=== PATIENT | male | born 1980 | race African-American/Black ===

== ENCOUNTER 2017-02-20 08:32 | Inpatient (IN) | payer OTHER ==
[2017-02-20 10:17] VITALS: BMI 20.9
--- NOTE | 2017-02-20 13:32 | HP ---
CIWA Score - CIWA Score Nausea/Vomitin-No Nausea/No Vomiting Muscle Tremors: 4-Moderate,w/Arms Extend Anxiety: 3 Agitation: 4-Moderately Restless Paroxysmal Sweats: 3 Orientation: 0-Oriented Tacttile Disturbances: 0-None Auditory Disturbances: 0-None Visual Disturbances: 0-None Headache: 0-None Present CIWA-Ar Total Score: 14 Admission ROS BHS - HPI Chief Complaint: I am here for detox. Allergies/Adverse Reactions: Allergies Allergy/AdvReac Type Severity Reaction Status Date / Time No Known Allergies Allergy Verified 02/20/17 11:31 History of Present Illness: pt is a 36yr old male with a history of alcohol and cannabis dependence seeking detox for treatment. pt has swelling to left hand , pt states he hit a wall yesterday and didn't go to a hospital. pt is unable to move hand and unable to make a fist. there is both swelling and is red and warm to touch. Exam Limitations: No Limitations - Ebola screening Have you traveled outside of the country in the last 21 days: No Have you had contact with anyone from an Ebola affected area: No Have you been sick,other than usual withdrawal symptoms: No Do you have a fever: No - Review of Systems Constitutional: Chills, Loss of Appetite, Night Sweats, Changes in sleep EENT: reports: No Symptoms Reported Respiratory: reports: No Symptoms reported Cardiac: reports: Syncope GI: reports: Poor Appetite, Poor Fluid Intake : reports: No Symptoms Reported Musculoskeletal: reports: No Symptoms Reported Integumentary: reports: Sweating Neuro: reports: Headache, Tingling, Tremors Endocrine: reports: Excessive Sweating, Flushing, Intolerance to Cold, Intolerance to Heat Hematology: reports: No Symptoms Reported Psychiatric: reports: Judgement Intact, Mood/Affect Appropiate, Orientated x3, Agitated, Anxious Other Systems: Reviewed and Negative Patient History - Patient Medical History Hx Anemia: No Hx Asthma: No Hx Chronic Obstructive Pulmonary Disease (COPD): No Hx Cancer: No Hx Cardiac Disorders: No Hx Congestive Heart Failure: No Hx Hypertension: No Hx Hypercholesterolemia: No Hx Pacemaker: No HX Cerebrovascular Accident: No Hx Seizures: No Hx Dementia: No Hx Diabetes: No Hx Gastrointestinal Disorders: No Hx Liver Disease: No Hx Genitourinary Disorders: No Hx Sexually Transmitted Disorders: No Hx Renal Disease (ESRD): No Hx Thyroid Disease: No Hx Human Immunodeficiency Virus (HIV): No (negative) Hx Hepatitis C: No Hx Depression: No Hx Suicide Attempt: No (denies) Hx Bipolar Disorder: No Hx Schizophrenia: No - Patient Surgical History Past Surgical History: No Hx Neurologic Surgery: No Hx Cataract Extraction: No Hx Cardiac Surgery: No Hx Lung Surgery: No Hx Breast Surgery: No Hx Breast Biopsy: No Hx Abdominal Surgery: No Hx Appendectomy: No Hx Cholecystectomy: No Hx Genitourinary Surgery: No Hx Section: No Hx Orthopedic Surgery: No Anesthesia Reaction: No - PPD History Previous Implant?: Yes Documented Results: Negative w/o proof Implanted On Prior [facility] Admission?: No PPD to be Administered?: Yes - Reproductive History Patient is a Female of Child Bearing Age (11 -55 yrs old): No - Smoking Cessation Smoking history: Current every day smoker Have you smoked in the past 12 months: Yes Aproximately how many cigarettes per day: 10 Hx Chewing Tobacco Use: No Initiated information on smoking cessation: Yes 'Breaking Loose' booklet given: 02/20/17 - Substance & Tx. History Hx Alcohol Use: Yes Hx Substance Use: Yes Substance Use Type: Alcohol, Marijuana Hx Substance Use Treatment: Yes (last detox [facility] over a yr ago) - Substances Abused Alcohol-vodka/rum/beer Route: Oral Frequency: Daily Amount used: 2-3 p[ts./2-3 pts. Age of first use: 18 Date of Last Use: 02/20/17 Marijuana Route: Smoking Frequency: 3-6 times per week Amount used: $5 Age of first use: 18 Date of Last Use: 02/24/17 Family Disease History - Family Disease History Family History: Denies Admission Physical Exam BHS - Vital Signs Vital Signs: Vital Signs - 24 hr 02/20/17 10:14 Temperature 96.4 F L Pulse Rate 71 Respiratory 20 Rate Blood Pressure 127/77 - Physical General Appearance: Yes: Appropriately Dressed, Moderate Distress, Alcohol on Breath, Thin, Irritable HEENTM: Yes: Normal Voice Respiratory: Yes: Lungs Clear, Normal Breath Sounds, No Respiratory Distress Neck: Yes: No masses,lesions,Nodules Breast: Yes: Within Normal Limits Cardiology: Yes: Regular Rhythm, Regular Rate, S1, S2 Abdominal: Yes: Normal Bowel Sounds, Non Tender, Soft Genitourinary: Yes: Within Normal Limits Back: Yes: Normal Inspection Musculoskeletal: Yes: Other (left hand swelling, redness unable to make fist or move fingers.) Extremities: Yes: Normal Capillary Refill, Normal Inspection, Non-Tender, Tremors Neurological: Yes: Fully Oriented, Normal Response Integumentary: Yes: Normal Color, Diaphoresis Lymphatic: Yes: Within Normal Limits - Diagnostic (1) Alcohol dependence with uncomplicated withdrawal Current Visit: Yes Status: Chronic (2) Cannabis dependence Current Visit: Yes Status: Chronic (3) Hand injury Current Visit: Yes Status: Acute Qualifiers: Encounter type: initial encounter Comment: pt states he hit a wall yesterday, hand is swollen and red, unable to make a fist or move fingers. pt will be sent to [place] for eval BHS Breath Alcohol Content Breath Alcohol Content: 0.218 Urine Drug Screen - Results Drug Screen Negative: Yes
--- NOTE | 2017-02-20 13:40 | PN ---
BHS Progress Note Note: pt has a left hand swelling with redness and pt is unable to move hand, open nor close hand or make a fist. pt will be taken to [place] ED for evaluation. report given to Dr. Anderson for evaluation
[2017-02-20] MEDS ORDERED: LOPERAMIDE HCL 2 MG CAPSULE PO PRN (13:46)
[2017-02-20] MEDS ORDERED: guaiFENesin/D-METHORPHAN HB 10 ML UNIT-DOSE CUPS PO PRN (13:46)
[2017-02-20] MEDS ORDERED: MAGNESIUM HYDROX 2400MG/30ML ORAL SUSPENSION 30 ML CUP PO PRN (13:46)
[2017-02-20] MEDS ORDERED: chlordiazePOXIDE HCL 25 MG CAPSULE PO PRN (13:46)
[2017-02-20] MEDS ORDERED: MAG HYDROX/AL HYDROX/SIMETH 30 ML UNIT-DOSE CUP PO PRN (13:46)
[2017-02-20] MEDS ORDERED: P-EPHED 60MG/TRIPROLIDI 2.5MG TABLET PO PRN (13:46)
[2017-02-20] MEDS ORDERED: IBUPROFEN 400 MG TABLET (FP) PO PRN (13:46)
[2017-02-20] MEDS ORDERED: MAGNESIUM CITRATE 300 ML BOTTLE PO PRN (13:46)
[2017-02-20] MEDS ORDERED: NICOTINE POLACRILEX 4 MG GUM BC PRN (13:46)
[2017-02-20] MEDS ORDERED: ACETAMINOPHEN 325 MG TABLET (FP) PO PRN (13:46)
[2017-02-20] MEDS ORDERED: MENTHOL/PHENOL 1 EACH UD MM PRN (13:46)
--- NOTE | 2017-02-20 17:40 | PN ---
S Progress Note Note: 36 YEARS OLD MALE RETURN FROM ER, TREATED WITH CLOSED FRACTURE METACARPAL BONE, SPLINT SLING OF LEFT ARM, FOLLOW UP WITH ORTHOPEDIC IN ONE WEEK AROUND 02/27/17 , FOUR FINGERS MOVE FREELY, 5TH FINGER LIMITED MOBILITY, BRISK CAPILLARY REFILL , 3/10 DISCOMFORT
[2017-02-20] MEDS ORDERED: chlordiazePOXIDE HCL 25 MG CAPSULE PO ONE (18:00)
[2017-02-20] MEDS: chlordiazePOXIDE HCL 25 MG CAPSULE PO SCH ×2 (18:50→22:23)
[2017-02-20] MEDS: THIAMINE HCL 100 MG TABLET (FP) PO SCH (22:23)
[2017-02-20] MEDS: diphenhydrAMINE HCL 50 MG CAPSULE PO PRN (22:24)
[2017-02-21 01:09] LABS: URINE APPEARANCE CLEAR; URINE BILIRUBIN NEGATIVE (NEGATIVE); URINE BLOOD NEGATIVE (NEGATIVE); URINE COLOR LTYELLOW; URINE GLUCOSE (UA) NEGATIVE (NEGATIVE); URINE KETONE NEGATIVE (NEGATIVE); URINE NITRITE NEGATIVE (NEGATIVE); URINE PROTEIN NEGATIVE (NEGATIVE); URINE UROBILINOGEN NEGATIVE mg/dL (0.2-1.0)
[2017-02-21] MEDS: chlordiazePOXIDE HCL 25 MG CAPSULE PO SCH ×4 (05:37→22:22)
[2017-02-21 09:46] LABS: URINE LEUK ESTERASE Negative (NEGATIVE)
[2017-02-21 09:50] LABS: MCH 31.4 pg (25.7-33.7); MCHC 33.9 g/dl (32.0-35.9); MEAN CELL VOLUME 92.9 fl (80-96); MEAN PLT VOLUME 8.2 fl (7.5-11.1); PLATELET COUNT 256 K/MM3 (134-434); RDW 13.2 % (11.9-15.9); WHITE BLOOD COUNT 8.1 K/mm3 (4.0-10.0)
[2017-02-21 10:13] LABS: SGOT/AST 26 U/L (15-37); SGPT/ALT 33 U/L (12-78)
[2017-02-21 10:18] LABS: ALK PHOS 117 U/L (45-117); ANION GAP 9 (8-16); BILIRUBIN,TOTAL 0.3 mg/dL (0.2-1.0); CALCIUM 8.6 mg/dL (8.5-10.1); CO2 30 mmol/L (21-32); CREATININE 1.1 mg/dL (0.7-1.3); GLUCOSE,RANDOM 127 mg/dL (74-106); TOT PROT 7.7 g/dl (6.4-8.2)
[2017-02-21] MEDS: PRENATAL VITAMINS W/ FOLIC ACID TABLET (FP) PO SCH (10:34)
[2017-02-21] MEDS: NICOTINE 21 MG/24 HOURS TOPICAL PATCH TD SCH (10:35)
--- NOTE | 2017-02-21 10:59 | PN ---
S CIWA - CIWA Score Nausea/Vomitin Muscle Tremors: 3 Anxiety: 3 Agitation: 3 Paroxysmal Sweats: 1-Minimal Palms Moist Orientation: 0-Oriented Tacttile Disturbances: 1-Very Mild Itch/Numbness Auditory Disturbances: 1-Very Mild Visual Disturbances: 0-None Headache: 2-Mild CIWA-Ar Total Score: 17 BHS Progress Note (SOAP) Subjective: alert,irritable,anxious,interrupted sleep,tremor,pain in the body and left hand Objective: 02/21/17 10:58 Vital Signs Temperature 97.7 F 02/21/17 10:00 Pulse Rate 78 02/21/17 10:00 Respiratory Rate 18 02/21/17 10:00 Blood Pressure 117/86 02/21/17 10:00 O2 Sat by Pulse Oximetry (%) ekg nsr 02/21/17 02/21/17 06:00 06:00 WBC 8.1 RBC 4.28 Hgb 13.5 Hct 39.7 MCV 92.9 MCHC 33.9 RDW 13.2 Plt Count 256 Sodium 141 Potassium 3.7 Chloride 102 Carbon Dioxide 30 Anion Gap 9 BUN 10 Creatinine 1.1 labs pending Assessment: 02/21/17 10:59 withdrawal symptom Plan: continue detox
[2017-02-21] MEDS: THIAMINE HCL 100 MG TABLET (FP) PO SCH (22:22)
[2017-02-21] MEDS: diphenhydrAMINE HCL 50 MG CAPSULE PO PRN (22:23)
[2017-02-22] MEDS: diphenhydrAMINE HCL 50 MG CAPSULE PO PRN ×2 (01:37→22:23)
[2017-02-22] MEDS: chlordiazePOXIDE HCL 25 MG CAPSULE PO SCH ×2 (05:47→10:29)
[2017-02-22] MEDS: PRENATAL VITAMINS W/ FOLIC ACID TABLET (FP) PO SCH (10:29)
[2017-02-22] MEDS: NICOTINE 21 MG/24 HOURS TOPICAL PATCH TD SCH (10:29)
--- NOTE | 2017-02-22 11:26 | PN ---
S CIWA - CIWA Score Nausea/Vomitin Muscle Tremors: 3 Anxiety: 2 Agitation: 2 Paroxysmal Sweats: 1-Minimal Palms Moist Orientation: 0-Oriented Tacttile Disturbances: 1-Very Mild Itch/Numbness Auditory Disturbances: 1-Very Mild Visual Disturbances: 0-None Headache: 2-Mild CIWA-Ar Total Score: 15 BHS Progress Note (SOAP) Subjective: alert,irritable,anxious,interrupted sleep,tremor, Objective: 02/22/17 11:24 02/22/17 11:25 Laboratory Last Values WBC 8.1 K/mm3 (4.0-10.0) 02/21/17 06:00 RBC 4.28 M/mm3 (4.00-5.60) 02/21/17 06:00 Hgb 13.5 GM/dL (11.7-16.9) 02/21/17 06:00 Hct 39.7 % (35.4-49) 02/21/17 06:00 MCV 92.9 fl (80-96) 02/21/17 06:00 MCH 31.4 pg (25.7-33.7) 02/21/17 06:00 MCHC 33.9 g/dl (32.0-35.9) 02/21/17 06:00 RDW 13.2 % (11.9-15.9) 02/21/17 06:00 Plt Count 256 K/MM3 (134-434) 02/21/17 06:00 MPV 8.2 fl (7.5-11.1) 02/21/17 06:00 Sodium 141 mmol/L (136-145) 02/21/17 06:00 Potassium 3.7 mmol/L (3.5-5.1) 02/21/17 06:00 Chloride 102 mmol/L (98-107) 02/21/17 06:00 Carbon Dioxide 30 mmol/L (21-32) 02/21/17 06:00 Anion Gap 9 (8-16) 02/21/17 06:00 BUN 10 mg/dL (7-18) 02/21/17 06:00 Creatinine 1.1 mg/dL (0.7-1.3) 02/21/17 06:00 Creat Clearance w eGFR > 60 (>60) 02/21/17 06:00 Random Glucose 127 mg/dL (74-106) H 02/21/17 06:00 Calcium 8.6 mg/dL (8.5-10.1) 02/21/17 06:00 Total Bilirubin 0.3 mg/dL (0.2-1.0) 02/21/17 06:00 AST 26 U/L (15-37) 02/21/17 06:00 ALT 33 U/L (12-78) 02/21/17 06:00 Alkaline Phosphatase 117 U/L (45-117) 02/21/17 06:00 Total Protein 7.7 g/dl (6.4-8.2) 02/21/17 06:00 Albumin 4.0 g/dl (3.4-5.0) 02/21/17 06:00 Urine Color Ltyellow 02/20/17 22:20 Urine Appearance Clear 02/20/17 22:20 Urine pH 5.0 (5.0-8.0) 02/20/17 22:20 Ur Specific [place] 1.020 (1.005-1.025) 02/20/17 22:20 Urine Protein Negative (NEGATIVE) 02/20/17 22:20 Urine Glucose (UA) Negative (NEGATIVE) 02/20/17 22:20 Urine Ketones Negative (NEGATIVE) 02/20/17 22:20 Urine Blood Negative (NEGATIVE) 02/20/17 22:20 Urine Nitrite Negative (NEGATIVE) 02/20/17 22:20 Urine Bilirubin Negative (NEGATIVE) 02/20/17 22:20 Urine Urobilinogen Negative mg/dL (0.2-1.0) 02/20/17 22:20 Ur Leukocyte Esterase Negative (NEGATIVE) 02/20/17 22:20 RPR Titer Nonreactive (NONREACTIVE) 02/21/17 06:00 Assessment: 02/22/17 11:25 withdrawal symptom Plan: continue detox,initial glucose 127,bgm monitoring daily
--- NOTE | 2017-02-22 11:55 | EKG ---
Test Reason : Blood Pressure : / mmHG Vent. Rate : 060 BPM Atrial Rate : 060 BPM P-R Int : 168 ms QRS Dur : 086 ms QT Int : 398 ms P-R-T Axes : 075 069 050 degrees QTc Int : 398 ms NORMAL SINUS RHYTHM NONSPECIFIC T WAVE ABNORMALITY ABNORMAL ECG WHEN COMPARED WITH ECG OF 20-FEB-2017 18:04, RSR' PATTERN IN V1 IS NO LONGER PRESENT Confirmed by SARA LEBLANC, CHAVEZ ([id number]) on 02/22/2017 11:54:54 AM Referred By: Confirmed By:CHAVEZ RUIZ MD
--- NOTE | 2017-02-22 12:01 | EKG ---
Test Reason : Blood Pressure : / mmHG Vent. Rate : 067 BPM Atrial Rate : 067 BPM P-R Int : 162 ms QRS Dur : 122 ms QT Int : 376 ms P-R-T Axes : 070 061 041 degrees QTc Int : 397 ms NORMAL SINUS RHYTHM RSR' OR QR PATTERN IN V1 SUGGESTS RIGHT VENTRICULAR CONDUCTION DELAY LEFT VENTRICULAR HYPERTROPHY WITH QRS WIDENING NONSPECIFIC T WAVE ABNORMALITY ABNORMAL ECG NO PREVIOUS ECGS AVAILABLE Confirmed by SARA LEBLANC, CHAVEZ ([id number]) on 02/22/2017 12:01:13 PM Referred By: Confirmed By:CHAVEZ RUIZ MD
[2017-02-22] MEDS: chlordiazePOXIDE 5 MG CAPSULE PO SCH ×2 (17:42→22:23)
[2017-02-22] MEDS: THIAMINE HCL 100 MG TABLET (FP) PO SCH (22:23)
[2017-02-23] MEDS: chlordiazePOXIDE 5 MG CAPSULE PO SCH ×2 (05:00→10:45)
--- NOTE | 2017-02-23 08:24 | CONSULT ---
[facility] Psychiatric Consult - Data Date of interview: 02/23/17 Admission source: [facility] Identifying data: This is 36 years vold male with no psychiatric hospitalization history intoxicated with: Alcohol, Cannabis Substance Abuse History: - Smoking Cessation. Smoking history: Current every day smoker. Have you smoked in the past 12 months: Yes. Aproximately how many cigarettes per day: 10. Hx Chewing Tobacco Use: No. Initiated information on smoking cessation: Yes. 'Breaking Loose' booklet given: 02/20/17. - Substance & Tx. History. Hx Alcohol Use: Yes. Hx Substance Use: Yes. Substance Use Type : Alcohol, Marijuana. Hx Substance Use Treatment: Yes (last detox [facility] over a yr ago). - Substances Abused. Alcohol-vodka/rum/beer. Route: Oral. Frequency: Daily. Amount used: 2-3 p[ts./2-3 pts. Age of first use: 18. Date of Last Use: 02/20/17. Marijuana. Route: Smoking. Frequency: 3-6 times per week. Amount used: $5. Age of first use: 18. Date of Last Use: Medical History: Boxer fracture left hand Psychiatric History: Denies past psychiastric history Physical/Sexual Abuse/Trauma History: Denies Additional Comment: Observation. Detox Unit Care Protocol Mental Status Exam - Mental Status Exam Alert and Oriented to: Person Cognitive Function: Fair Patient Appearance: Unkempt Mood: Sad Affect: Flat Patient Behavior: Sedated Speech Pattern: Delayed Voice Loudness: Mildly Soft/Quiet Thought Process: Circumstantial Thought Disorder: Being Controlled Hallucinations: Denies Suicidal Ideation: Denies Homicidal Ideation: Denies Insight/Judgement: Fair Sleep: Difficulty falling asleep Appetite: Fair Muscle strength/Tone: Mild Hypotonicity Gait/Station: Shuffling Additional Comments: Observation. Detox Unit Care Protocol Psychiatric Findings - Problem List ([place] 1, 2,3) (1) Alcohol dependence with uncomplicated withdrawal Current Visit: Yes Status: Chronic (2) Cannabis dependence Current Visit: Yes Status: Chronic (3) Drug-induced mood disorder Current Visit: Yes Status: Suspected - Initial Treatment Plan Initial Treatment Plan: Observation. Detox Unit Care Protocol
--- NOTE | 2017-02-23 10:33 | PN ---
BHS Progress Note (SOAP) Subjective: alert,irritable,anxious,interrupted sleep Objective: 02/23/17 10:32 Vital Signs Temperature 97.9 F 02/23/17 09:53 Pulse Rate 68 02/23/17 09:53 Respiratory Rate 18 02/23/17 09:53 Blood Pressure 126/92 02/23/17 09:53 O2 Sat by Pulse Oximetry (%) Assessment: 02/23/17 10:32 withdrawal symptom Plan: continue detox,discharge in am
[2017-02-23] MEDS: PRENATAL VITAMINS W/ FOLIC ACID TABLET (FP) PO SCH (10:45)
[2017-02-23] MEDS: NICOTINE 21 MG/24 HOURS TOPICAL PATCH TD SCH (10:45)
[2017-02-23] MEDS: chlordiazePOXIDE HCL 10 MG CAPSULE PO SCH ×3 (17:57→22:27)
[2017-02-23] MEDS: THIAMINE HCL 100 MG TABLET (FP) PO SCH (22:27)
[2017-02-23] MEDS: diphenhydrAMINE HCL 50 MG CAPSULE PO PRN (22:28)
[2017-02-24] MEDS: chlordiazePOXIDE HCL 10 MG CAPSULE PO SCH ×2 (05:29→10:31)
--- NOTE | 2017-02-24 08:36 | DS ---
[facility] Detox Discharge Summary Admission Date: 02/20/17 Discharge Date: 02/24/17 - History Present History: Alcohol Dependence, Cannabis Dependence Additional Comments: follow up with after care program as arrangement Pertinent Past History: fracture of 5th metacarpal head - Physical Exam Results Vital Signs: Vital Signs Temperature 97.5 F L 02/24/17 06:31 Pulse Rate 62 02/24/17 06:31 Respiratory Rate 16 02/24/17 06:31 Blood Pressure 125/78 02/24/17 06:31 O2 Sat by Pulse Oximetry (%) Pertinent Admission Physical Exam Findings: withdrawal symptom - Treatment Hospital Course: Detox Protocol Followed, Detoxed Safely, Responded well, Discharged Condition Good, Rehab Referral Accepted Patient has Accepted a Rehab Referral to: [facility] - Medication Discharge Medications: Ambulatory Orders NK [No Known Home Medication] 02/20/17 - Diagnosis (1) Alcohol dependence with uncomplicated withdrawal Current Visit: Yes Status: Chronic (2) Hand injury Current Visit: Yes Status: Acute Qualifiers: Encounter type: initial encounter (3) Cannabis dependence Current Visit: Yes Status: Chronic (4) Boxers fracture Current Visit: No Status: Acute Qualifiers: Encounter type: initial encounter Fracture type: closed Qualified Code(s): S62.339A - Displaced fracture of neck of unspecified metacarpal bone, initial encounter for closed fracture; S62.339A - Displaced fracture of neck of unspecified metacarpal bone, initial encounter for closed fracture - AMA Did Patient Leave Against Medical Advice: No
[2017-02-24 09:47] VITALS: BP 112/80; PULSE 75; TEMP 96.7
[2017-02-24] MEDS: NICOTINE 21 MG/24 HOURS TOPICAL PATCH TD SCH (10:30)
[2017-02-24] MEDS: PRENATAL VITAMINS W/ FOLIC ACID TABLET (FP) PO SCH (10:30)
== END 2017-02-24 10:35 | disposition home or self-care (01) | DRG 775 ==
LOC: YASAS 08:32 → UNDOADMIN 13:31 → Y6N 13:31
PROVIDERS: ADMIT Internal Medicine; ATTEND Internal Medicine
PROC: HZ2ZZZZ Detoxification Services for Substance Abuse Treatment (ICD-10-PCS; principal; 2017-02-20)
DX: F10.230 Alcohol dependence with withdrawal, uncomplicated (principal); F12.20 Cannabis dependence, uncomplicated; F17.210 Nicotine dependence, cigarettes, uncomplicated; F19.24 Other psychoactive substance dependence with psychoactive substance-induced mood disorder; S62.339A Displaced fracture of neck of unspecified metacarpal bone, initial encounter for closed fracture; W22.8XXA Striking against or struck by other objects, initial encounter; Y93.89 Activity, other specified; Y92.89 Other specified places as the place of occurrence of the external cause; Y99.8 Other external cause status
CPT/HCPCS: 36415; 80053; 81003; 85027; 86593; 93005; 93010

== ENCOUNTER 2017-02-20 14:40 | Emergency (ER) | payer OTHER ==
[2017-02-20 14:51] VITALS: BP 153/74; PULSE 76; TEMP 96.4; BMI 20.9
--- NOTE | 2017-02-20 15:32 | PDOC ---
History of Present Illness - General Chief Complaint: Injury Stated Complaint: HAND IN JURY Time Seen by Provider: 02/20/17 15:17 History Source: Patient - History of Present Illness Initial Comments: 02/20/17 15:32 36 year old male left hand injury reports that he punched a wall yesterday. reports pain and swelling to the Left hand since the incident. unable to ROM. patient was sent from intake section in [facility] for evaluation. Past History - Past Medical History Allergies/Adverse Reactions: Allergies Allergy/AdvReac Type Severity Reaction Status Date / Time No Known Allergies Allergy Verified 02/20/17 11:31 Home Medications: Ambulatory Orders NK [No Known Home Medication] 02/20/17 Anemia: No Asthma: No Cancer: No Cardiac Disorders: No CVA: No COPD: No CHF: No Dementia: No Diabetes: No GI Disorders: No Disorders: No HTN: No Hypercholesterolemia: No Kidney Stones: No Liver Disease: No Seizures: No Thyroid Disease: No - Surgical History Abdominal Surgery: No Appendectomy: No Cardiac Surgery: No Cholecystectomy: No Lung Surgery: No Neurologic Surgery: No Orthopedic Surgery: No - Reproductive History Testicular Surgery: No - Suicide/Smoking/Psychosocial Hx Smoking History: Current every day smoker Have you smoked in the past 12 months: Yes Number of Cigarettes Smoked Daily: 10 Information on smoking cessation initiated: No 'Breaking Loose' booklet given: 02/20/17 Hx Alcohol Use: No Drug/Substance Use Hx: No Substance Use Type: Alcohol, Marijuana Hx Substance Use Treatment: Yes (last detox [facility] over a yr ago) Trauma Specific PMHX - Complaint Specific PMHX Arthritis: No Review of Systems - Review of Systems Able to Perform ROS?: Yes Is the patient limited Swedish proficient: Yes Musculoskeletal: Yes: Other (left arm pain and sweling) *Physical Exam - Vital Signs Last Vital Signs Temp Pulse Resp BP Pulse Ox 96.4 F L 76 18 153/74 100 02/20/17 14:45 02/20/17 14:45 02/20/17 14:45 02/20/17 14:45 02/20/17 14:45 - Physical Exam General Appearance: Yes: Intoxicated Cardiovascular: positive: Regular Rhythm, Regular Rate Extremity: positive: Swelling (left hand with deformity over the left fifth metacarpal area) Neurologic: positive: Alert, Other (sleepy. ) Progress Note - Progress Note Progress Note: left metacarpal fracture P: xray splint sling ortho follow up Medical Decision Making - Medical Decision Making 02/20/17 16:[address] fisher. recommends splinting and outpatient ortho follow up. 02/20/17 16:15 patient cleared to return to Detox. I spoke to Naomi Walton NP. *DC/Admit/Observation/Transfer Diagnosis at time of Disposition: Boxers fracture Qualifiers: Encounter type: initial encounter Fracture type: closed Qualified Code(s): S62.339A - Displaced fracture of neck of unspecified metacarpal bone, initial encounter for closed fracture; S62.339A - Displaced fracture of neck of unspecified metacarpal bone, initial encounter for closed fracture - Discharge Dispostion Disposition: HOME - Referrals Referrals: Stu Newsome MD [Staff Physician] - - Patient Instructions Printed Discharge Instructions: How to Use a Sling, DI for Boxer's Fracture Additional Instructions: keep arm in sling. follow up with orthopedic in 1 week.
== END 2017-02-20 16:31 | disposition other institution (70) ==
LOC: JERFT 14:40
DX: S62.339A Displaced fracture of neck of unspecified metacarpal bone, initial encounter for closed fracture (principal); W22.8XXA Striking against or struck by other objects, initial encounter; Y93.89 Activity, other specified; Y92.89 Other specified places as the place of occurrence of the external cause; Y99.8 Other external cause status
CPT/HCPCS: 73130-TC-LT; 99281-25

== ENCOUNTER 2018-06-13 14:56 | Inpatient (IN) | payer OTHER ==
[2018-06-13 16:32] VITALS: BMI 22.2
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
[2018-06-13] MEDS ORDERED: LOPERAMIDE HCL 2 MG CAPSULE PO PRN (20:56)
[2018-06-13] MEDS ORDERED: MAGNESIUM HYDROX 2400MG/30ML ORAL SUSPENSION 30 ML CUP PO PRN (20:56)
[2018-06-13] MEDS ORDERED: MAG HYDROX/AL HYDROX/SIMETH 30 ML UNIT-DOSE CUP PO PRN (20:56)
[2018-06-13] MEDS ORDERED: chlordiazePOXIDE HCL 25 MG CAPSULE PO PRN (20:56)
[2018-06-13] MEDS ORDERED: MENTHOL/PHENOL 1 EACH UD MM PRN (20:56)
[2018-06-13] MEDS ORDERED: NICOTINE POLACRILEX 2 MG GUM BC PRN (20:56)
[2018-06-13] MEDS ORDERED: MAGNESIUM CITRATE 300 ML BOTTLE PO PRN (20:56)
[2018-06-13] MEDS ORDERED: guaiFENesin/D-METHORPHAN HB 10 ML UNIT-DOSE CUPS PO PRN (20:56)
[2018-06-13] MEDS ORDERED: P-EPHED 60MG/TRIPROLIDI 2.5MG TABLET PO PRN (20:56)
[2018-06-13] MEDS ORDERED: IBUPROFEN 400 MG TABLET (FP) PO PRN (20:56)
[2018-06-13] MEDS ORDERED: MELATONIN 5 MG TABLETS PO PRN (22:00)
[2018-06-13] MEDS: chlordiazePOXIDE HCL 25 MG CAPSULE PO SCH (22:31)
[2018-06-13] MEDS: THIAMINE HCL 100 MG TABLET (FP) PO SCH (22:31)
[2018-06-13] MEDS: ACETAMINOPHEN 325 MG TABLET (FP) PO PRN (22:32)
[2018-06-14] MEDS: chlordiazePOXIDE HCL 25 MG CAPSULE PO SCH ×4 (06:25→22:10)
[2018-06-14] MEDS: ACETAMINOPHEN 325 MG TABLET (FP) PO PRN (07:26)
--- NOTE | 2018-06-14 08:02 | CONSULT ---
[facility] Psychiatric Consult - Data Date of interview: 06/14/18 Admission source: [facility] Identifying data: This is a 37 years old male, single, shildless, unemployed, homeless, with nop financial support, with 26 years of alcohol and nicotine dependence is here reporting withdrawal symptoms and seeking admission to detox. Substance Abuse History: Smoking history: Current every day smoker. Have you smoked in the past 12 months: Yes. Aproximately how many cigarettes per day: 10. Hx Chewing Tobacco Use: No. Initiated information on smoking cessation: Yes. 'Breaking Loose' booklet given: 06/13/18. - Substance & Tx. History. Hx Alcohol Use: Yes. Hx Substance Use: No. Substance Use Type: Alcohol. Hx Substance Use Treatment: Yes ([facility]). - Substances Abused. Alcohol. Route: Oral. Frequency: Daily. Amount used: 3 pints VODKA. Age of first use: 19. Date of Last Use: 06/13/18 Medical History: Boxers fracture hsitory Psychiatric History: Patient reports history of anxiety and depression, reports no psychiatric hospitalization history, reports no suicidal, homicidal history, reports insonia, and states taking Seroquel 100mg pom qhs with good response for his insomnia prior to admission. Physical/Sexual Abuse/Trauma History: Denies Additional Comment: Seroquel 100mg pom qhs Mental Status Exam - Mental Status Exam Alert and Oriented to: Person Cognitive Function: Fair Patient Appearance: Unkempt Mood: Sad Affect: Flat Patient Behavior: Sedated Speech Pattern: Delayed Voice Loudness: Mildly Soft/Quiet Thought Process: Circumstantial Thought Disorder: Being Controlled Hallucinations: Denies Suicidal Ideation: Denies Homicidal Ideation: Denies Insight/Judgement: Fair Sleep: Difficulty falling asleep Appetite: Weight loss Muscle strength/Tone: Mild Hypotonicity Gait/Station: Shuffling Additional Comments: Seroquel 100mg pom qhs Psychiatric Findings - Problem List ([place] 1, 2,3) (1) Alcohol dependence with uncomplicated withdrawal Current Visit: Yes Status: Chronic (2) Bronchitis Current Visit: Yes Status: Chronic (3) Nicotine dependence Current Visit: Yes Status: Chronic Qualifiers: Nicotine product type: cigarettes Substance use status: uncomplicated Qualified Code(s): F17.210 - Nicotine dependence, cigarettes, uncomplicated (4) Boxers fracture Current Visit: No Status: Acute Qualifiers: Encounter type: initial encounter Fracture type: closed Qualified Code(s) : S62.339A - Displaced fracture of neck of unspecified metacarpal bone, initial encounter for closed fracture (5) Hand injury Current Visit: No Status: Acute Qualifiers: Encounter type: initial encounter Comment: pt states he hit a wall yesterday, hand is swollen and red, unable to make a fist or move fingers. pt will be sent to [facility] ED for eval (6) Cannabis dependence Current Visit: No Status: Chronic (7) Drug-induced mood disorder Current Visit: No Status: Suspected - Initial Treatment Plan Initial Treatment Plan: Seroquel 100mg po qhs
[2018-06-14 10:28] LABS: HEMATOCRIT 40.6 % (35.4-49); HEMOGLOBIN 14.6 GM/dL (11.7-16.9); MCH 33.5 pg (25.7-33.7); MCHC 35.9 g/dl (32.0-35.9); MEAN CELL VOLUME 93.4 fl (80-96); MEAN PLT VOLUME 7.9 fl (7.5-11.1); PLATELET COUNT 253 K/MM3 (134-434); RBC 4.35 M/mm3 (4.00-5.60); RDW 13.9 % (11.9-15.9); WHITE BLOOD COUNT 7.6 K/mm3 (4.0-10.0)
[2018-06-14 11:09] LABS: ALBUMIN 3.9 g/dl (3.4-5.0); ALK PHOS 170 U/L (45-117); ANION GAP 9 MMOL/L (8-16); BLOOD UREA NITROGEN 11 mg/dL (7-18); CALCIUM 9.3 mg/dL (8.5-10.1); CHLORIDE 102 mmol/L (98-107); CO2 27 mmol/L (21-32); CREATININE 0.9 mg/dL (0.55-1.3); GLUCOSE,RANDOM 81 mg/dL (74-106); POTASSIUM 4.1 mmol/L (3.5-5.1); SGOT/AST 34 U/L (15-37); SGPT/ALT 26 U/L (13-61); SODIUM 138 mmol/L (136-145); TOT PROT 7.6 g/dl (6.4-8.2)
[2018-06-14] MEDS: PRENATAL VITAMINS W/ FOLIC ACID TABLET (FP) PO SCH (11:11)
[2018-06-14] MEDS: BACITRACIN 0.9 GM PACKET TP SCH (11:11)
[2018-06-14] MEDS: NICOTINE 14 MG/24 HOURS TOPICAL PATCH TD SCH (11:12)
--- NOTE | 2018-06-14 16:41 | PN ---
S CIWA - CIWA Score Nausea/Vomitin-No Nausea/No Vomiting Muscle Tremors: 4-Moderate,w/Arms Extend Anxiety: 0-No Anxiety, at Ease Agitation: 0-Normal Activity Paroxysmal Sweats: 3 Orientation: 0-Oriented Tacttile Disturbances: 2-Mild Itch/Numbness/Burn Auditory Disturbances: 2-Mild Harshness/Frighten Visual Disturbances: 1-Very Mild Sensitivity Headache: 0-None Present CIWA-Ar Total Score: 12 S Progress Note (SOAP) Subjective: Sweating, Fatigue, Tremors. Objective: PATIENT A & O X 3. IN NO ACUTE DISTRESS. 06/14/18 16:42 Vital Signs Temperature 98.2 F 06/14/18 13:57 Pulse Rate 79 06/14/18 15:00 Respiratory Rate 18 06/14/18 13:57 Blood Pressure 130/68 06/14/18 13:57 O2 Sat by Pulse Oximetry (%) Laboratory Tests 06/14/18 06/14/18 06/14/18 07:00 07:00 07:00 WBC 7.6 RBC 4.35 Hgb 14.6 Hct 40.6 MCV 93.4 MCH 33.5 MCHC 35.9 RDW 13.9 Plt Count 253 MPV 7.9 Sodium 138 Potassium 4.1 Chloride 102 Carbon Dioxide 27 Anion Gap 9 BUN 11 Creatinine 0.9 Creat Clearance w eGFR > 60 Random Glucose 81 Calcium 9.3 Total Bilirubin 1.0 AST 34 ALT 26 Alkaline Phosphatase 170 H Total Protein 7.6 Albumin 3.9 RPR Titer Nonreactive LABS NOTED. Assessment: 06/14/18 16:43 WITHDRAWAL SYMPTOMS. Plan: CONTINUE DETOX. INCREASE DAILY PO FLUID INTAKE.
--- NOTE | 2018-06-14 16:47 | EKG ---
Test Reason : Blood Pressure : / mmHG Vent. Rate : 082 BPM Atrial Rate : 082 BPM P-R Int : 156 ms QRS Dur : 098 ms QT Int : 362 ms P-R-T Axes : 072 057 054 degrees QTc Int : 422 ms NORMAL SINUS RHYTHM NORMAL ECG WHEN COMPARED WITH ECG OF 21-FEB-2017 06:00, NO SIGNIFICANT CHANGE WAS FOUND Confirmed by ERVIN ACKERMAN MD ([id number]) on 06/14/2018 4:47:11 PM Referred By: Confirmed By:ERVIN ACKERMAN MD
[2018-06-14] MEDS: THIAMINE HCL 100 MG TABLET (FP) PO SCH (22:10)
[2018-06-14] MEDS: QUEtiapine FUMARATE 100 MG TABLET (FP) PO SCH (22:10)
[2018-06-15] MEDS: chlordiazePOXIDE HCL 25 MG CAPSULE PO SCH ×3 (06:13→16:55)
[2018-06-15] MEDS: NICOTINE 14 MG/24 HOURS TOPICAL PATCH TD SCH (10:25)
[2018-06-15] MEDS: PRENATAL VITAMINS W/ FOLIC ACID TABLET (FP) PO SCH (10:25)
[2018-06-15] MEDS: BACITRACIN 0.9 GM PACKET TP SCH (10:25)
--- NOTE | 2018-06-15 13:11 | PN ---
[facility] CIWA - CIWA Score Nausea/Vomitin-No Nausea/No Vomiting Muscle Tremors: 3 Anxiety: 2 Agitation: 2 Paroxysmal Sweats: 2 Orientation: 0-Oriented Tacttile Disturbances: 0-None Auditory Disturbances: 0-None Visual Disturbances: 0-None Headache: 0-None Present CIWA-Ar Total Score: 9 S Progress Note (SOAP) Subjective: tired sweats interrupted sleep Objective: 06/15/18 13:11 Vital Signs Temperature 98.3 F 06/15/18 09:18 Pulse Rate 74 06/15/18 09:18 Respiratory Rate 19 06/15/18 09:18 Blood Pressure 112/66 06/15/18 09:18 O2 Sat by Pulse Oximetry (%) Laboratory Tests 06/14/18 06/14/18 06/14/18 07:00 07:00 07:00 WBC 7.6 RBC 4.35 Hgb 14.6 Hct 40.6 MCV 93.4 MCH 33.5 MCHC 35.9 RDW 13.9 Plt Count 253 MPV 7.9 Sodium 138 Potassium 4.1 Chloride 102 Carbon Dioxide 27 Anion Gap 9 BUN 11 Creatinine 0.9 Creat Clearance w eGFR > 60 Random Glucose 81 Calcium 9.3 Total Bilirubin 1.0 AST 34 ALT 26 Alkaline Phosphatase 170 H Total Protein 7.6 Albumin 3.9 RPR Titer Nonreactive aaox3 ambulating no acute distress Assessment: 06/15/18 13:11 mild withdrawal sx Plan: continue detox increase fluids
[2018-06-15] MEDS: QUEtiapine FUMARATE 100 MG TABLET (FP) PO SCH (22:25)
[2018-06-15] MEDS: chlordiazePOXIDE 5 MG CAPSULE PO SCH (22:25)
[2018-06-15] MEDS: THIAMINE HCL 100 MG TABLET (FP) PO SCH (22:25)
[2018-06-16] MEDS: HYDROCORTISONE 1% TOPICAL CREAM 30 GM TUBE TP SCH ×4 (00:11→22:33)
[2018-06-16] MEDS: chlordiazePOXIDE 5 MG CAPSULE PO SCH ×3 (06:35→18:42)
[2018-06-16] MEDS: PRENATAL VITAMINS W/ FOLIC ACID TABLET (FP) PO SCH (10:38)
[2018-06-16] MEDS: NICOTINE 14 MG/24 HOURS TOPICAL PATCH TD SCH (10:38)
[2018-06-16] MEDS: BACITRACIN 0.9 GM PACKET TP SCH (10:38)
--- NOTE | 2018-06-16 13:46 | PN ---
[facility] Progress Note (SOAP) Subjective: Sleep disturbance shakes Objective: 06/16/18 13:42 A & O x 3 Sleeping but arousable to verbal stimuli Xray not done today because it's a weekend Red, indurated area noted to area of tuberculin administration Vital Signs Temperature 97.7 F 06/16/18 10:25 Pulse Rate 74 06/16/18 10:25 Respiratory Rate 18 06/16/18 10:25 Blood Pressure 137/80 06/16/18 10:25 O2 Sat by Pulse Oximetry (%) Assessment: 06/16/18 13:43 withdrawal sx Positive PPD result Plan: continue detox Xray ordered for a.m monday Face mask and on airborne isolation pending xray result AMY Vasquez and pt made aware and verbalized understanding
[2018-06-16] MEDS: QUEtiapine FUMARATE 100 MG TABLET (FP) PO SCH (22:33)
[2018-06-16] MEDS: chlordiazePOXIDE HCL 10 MG CAPSULE PO SCH (22:33)
[2018-06-16] MEDS: THIAMINE HCL 100 MG TABLET (FP) PO SCH (22:33)
[2018-06-17] MEDS: HYDROCORTISONE 1% TOPICAL CREAM 30 GM TUBE TP SCH (06:33)
[2018-06-17] MEDS: chlordiazePOXIDE HCL 10 MG CAPSULE PO SCH (06:33)
[2018-06-17 09:24] VITALS: BP 124/71; PULSE 67; TEMP 98.1
--- NOTE | 2018-06-17 12:59 | DS ---
[facility] Detox Discharge Summary Admission Date: 06/13/18 Discharge Date: 06/17/18 - History Present History: Alcohol Dependence Additional Comments: Patient completed detox successfully and is scheduled for discharge today. Patient denies any complaints. He is A/A/Ox3, in nad, vss, ambulatory. Patient instructed to follow up with his PCP within 1-2 weeks. Pertinent Past History: Alcohol dependence Nicotine dependence - Physical Exam Results Vital Signs: Vital Signs Temperature 98.1 F 06/17/18 09:24 Pulse Rate 67 06/17/18 09:24 Respiratory Rate 16 06/17/18 09:24 Blood Pressure 124/71 06/17/18 09:24 O2 Sat by Pulse Oximetry (%) Pertinent Admission Physical Exam Findings: Withdrawal symptoms Laboratory Tests 06/14/18 06/14/18 06/14/18 07:00 07:00 07:00 WBC 7.6 RBC 4.35 Hgb 14.6 Hct 40.6 MCV 93.4 MCH 33.5 MCHC 35.9 RDW 13.9 Plt Count 253 MPV 7.9 Sodium 138 Potassium 4.1 Chloride 102 Carbon Dioxide 27 Anion Gap 9 BUN 11 Creatinine 0.9 Creat Clearance w eGFR > 60 Random Glucose 81 Calcium 9.3 Total Bilirubin 1.0 AST 34 ALT 26 Alkaline Phosphatase 170 H Total Protein 7.6 Albumin 3.9 RPR Titer Nonreactive Labs reviewed Cxray on 06/16/18: normal - Treatment Hospital Course: Detox Protocol Followed, Detoxed Safely, Responded well, Discharged Condition Good - Medication Discharge Medications: Ambulatory Orders Quetiapine Fumarate [Seroquel] 100 mg PO HS #30 tablet 06/14/18 - Diagnosis (1) PPD positive Status: Acute (2) Alcohol dependence with uncomplicated withdrawal Status: Acute (3) Anxiety Status: Chronic (4) Bronchitis Status: Chronic (5) Nicotine dependence Status: Chronic Qualifiers: Nicotine product type: cigarettes Substance use status: uncomplicated Qualified Code(s): F17.210 - Nicotine dependence, cigarettes, uncomplicated - AMA Did Patient Leave Against Medical Advice: No (F/U with PCP within 1-2 weeks)
== END 2018-06-17 10:49 | disposition home or self-care (01) | DRG 775 ==
LOC: YASAS 14:56 → Y6N 19:25
PROVIDERS: ADMIT Surgery; ATTEND Surgery
PROC: HZ2ZZZZ Detoxification Services for Substance Abuse Treatment (ICD-10-PCS; principal; 2018-06-13)
DX: F10.230 Alcohol dependence with withdrawal, uncomplicated (principal); F12.20 Cannabis dependence, uncomplicated; F17.210 Nicotine dependence, cigarettes, uncomplicated; F19.24 Other psychoactive substance dependence with psychoactive substance-induced mood disorder; F41.9 Anxiety disorder, unspecified; G47.00 Insomnia, unspecified; J42 Unspecified chronic bronchitis; R76.11 Nonspecific reaction to tuberculin skin test without active tuberculosis; Z87.81 Personal history of (healed) traumatic fracture
CPT/HCPCS: 36415; 71045-TC-FY; 80053; 85027; 86593; 93005; 93010